=== PATIENT | female | born 1950 | race Caucasian/White ===

== ENCOUNTER → 2017-02-15 17:04 | Outpatient (CLI) | payer BC ==
[2015-08-03 07:20] VITALS: BMI 25.7
[~2017-02-15 17:04] MED LIST: ALENDRONATE SOD70 MG PO; CELEXA40 MG PO; DEXILANT60 MG PO; DITROPAN X10 MG/BOTT PO; HYDROCODONE-APA1 TAB PO; LIPOFEN150 MG PO; TOPAMAX50 MG PO; TOPROL XL50 MG PO
== END | disposition home or self-care (01) ==
LOC: D.MAMMO 02-07 14:30
DX: Z85.3 Personal history of malignant neoplasm of breast (principal)

== ENCOUNTER 2017-04-25 10:51 | Outpatient (CLI) | payer MEDICARE, BC ==
[~2017-04-25] VITALS: Ht 160 cm; Wt 68.2 kg
[2017-04-25] MEDS ORDERED: WELLBUTRIN XL150 M1 PO (11:45)
[2017-04-25] MEDS ORDERED: LIPITOR20 MG PO (11:45)
[2017-04-25] MEDS ORDERED: LIPITOR40 MG PO (11:46)
[2017-04-25 11:57] VITALS: BP 129/67; Ht 160 cm; Wt 68.2 kg
== END 2017-04-25 12:06 | disposition home or self-care (01) ==
LOC: D.OPS 10:51
DX: M81.0 Age-related osteoporosis without current pathological fracture (principal)

== ENCOUNTER 2017-11-21 09:26 | Outpatient (CLI) | payer MEDICARE, BC ==
[~2017-11-21] VITALS: Ht 160 cm; Wt 72.7 kg
[~2017-11-21 09:26] MED LIST changes: +LIPITOR20 MG PO; +LIPITOR40 MG PO; +WELLBUTRIN XL150 M1 PO
[2017-11-21 09:58] VITALS: Ht 160 cm; Wt 72.7 kg
== END 2017-11-21 10:09 ==
LOC: D.OPS 09:26
DX: M81.0 Age-related osteoporosis without current pathological fracture (principal)

== ENCOUNTER 2018-03-13 10:20 | Emergency (ER) | payer MEDICARE, BC ==
[2017-11-21 09:58] VITALS: BMI 28.4
[2018-03-13 11:32] LABS: HEMATOCRIT 37.5 % (36.0-48.0); HEMOGLOBIN 12.8 g/dL (12-16); MCH 32.7 pg (26.0-34.0); MCHC 34.1 g/dL (31.0-37.0); MCV 95.7 fL (80.0-100.0); MEAN PLATELET VOLUME 9.4 fL (7.4-10.4); RBC 3.92 10x6/uL (4.00-5.40); RDW 12.9 % (11.5-14.5); WBC 5.1 10x3/uL (4.8-10.8)
[2018-03-13 11:37] LABS: PLATELET COUNT 256 10x3/uL (130-400)
[2018-03-13 12:12] LABS: ALBUMIN 3.7 g/dL (3.4-5.0); BILIRUBIN - TOTAL 0.19 mg/dL (0.2-1.3); CALCIUM 8.7 mg/dL (8.5-10.1); CARBON DIOXIDE 24.6 mmol/L (21.0-32.0); CREATININE - SERUM 1.1 mg/dL (0.6-1.3); POTASSIUM - SERUM 3.6 mmol/L (3.5-5.1); PROTEIN - SERUM 7.2 g/dL (6.4-8.2)
[2018-03-13 12:52] LABS: EOSINOPHILS 1 % (0-7); LYMPHOCYTES 63 % (15-50); MONOCYTES 3 % (2-11); NEUTROPHILS 33 % (40-80); PLATELET ESTIMATE NORMAL
[2018-03-13 14:09] LABS: UDS - AMPHET NEGATIVE QUAL (NEGATIVE); UDS - BARB NEGATIVE QUAL (NEGATIVE); UDS - BENZO POSITIVE QUAL (NEGATIVE); UDS - COCAINE NEGATIVE QUAL (NEGATIVE); UDS - OPIATE NEGATIVE QUAL (NEGATIVE); UDS - PCP NEGATIVE QUAL (NEGATIVE); UDS - THC NEGATIVE QUAL (NEGATIVE)
[2018-03-13 14:29] LABS: APPEARANCE CLEAR (CLEAR); COLOR YELLOW (YELLOW); GLUCOSE NEGATIVE (NEGATIVE); NITRITE NEGATIVE (NEGATIVE); PROTEIN NEGATIVE (NEGATIVE); SPECIFIC GRAVITY 1.015 (1.005-1.020)
[2018-03-13 14:30] LABS: BACTERIA FEW /hpf (NONE SEEN); BILIRUBIN NEGATIVE (NEGATIVE); EPITHELIAL CELLS 0-5 /hpf (0-5); KETONE NEGATIVE (NEGATIVE); MUCUS <1+ /lpf (NONE SEEN); RED CELLS - URINE 0-5 /hpf (0-5); UROBILINOGEN NORMAL (NORMAL); WHITE CELLS - URINE RARE /hpf (0-5)
== END 2018-03-14 02:00 | disposition short-term general hospital (02) ==
LOC: D.ER 10:20
PROVIDERS: Family Medicine
DX: F10.10 Alcohol abuse, uncomplicated (principal); F10.129 Alcohol abuse with intoxication, unspecified; R45.851 Suicidal ideations; F17.200 Nicotine dependence, unspecified, uncomplicated

== ENCOUNTER 2018-11-13 11:56 | Outpatient (CLI) | payer MEDICARE, BC ==
[~2018-11-13] VITALS: Ht 160 cm; Wt 68.2 kg
[2018-11-13 12:18] VITALS: BP 125/50; Ht 160 cm; Wt 68.2 kg
== END 2018-11-13 12:25 | disposition home or self-care (01) ==
LOC: D.OPS 11:56
DX: M81.0 Age-related osteoporosis without current pathological fracture (principal); Z01.812 Encounter for preprocedural laboratory examination

== ENCOUNTER 2019-05-28 11:51 | Outpatient (CLI) | payer MEDICARE, BC ==
[~2019-05-28] VITALS: Ht 160 cm; Wt 59.1 kg
[2019-05-28 12:17] VITALS: BP 134/67; Ht 160 cm; Wt 59.1 kg
--- NOTE | 2019-05-28 12:43 | NUR ---
DR. MONTERO NOTIFIED AND REVIEWED PT'S BEHAVIOR AND ASSESSMENT RESULTS. PT IS A LOW RISK PER DR. MONTERO. DR. MONTERO STATED TO GIVE RESOURCES TO PT AT TIME OF DISCHARGE. NO FURTHER ORDERS AT THIS TIME. RESOURCES REVIEWED WITH PT AND SHE VERBALIZED UNDERSTANDING.
== END 2019-05-28 12:51 | disposition home or self-care (01) ==
LOC: D.MAMMO 11:51
PROVIDERS: ATTEND Emergency Medicine
DX: Z12.31 Encounter for screening mammogram for malignant neoplasm of breast (principal)

== ENCOUNTER → 2019-07-21 17:55 | Outpatient (CLI) | payer MEDICARE, BC ==
[2019-05-28 12:17] VITALS: BMI 23.0
== END | disposition home or self-care (01) ==
LOC: D.LABREF 17:55
PROVIDERS: ATTEND Urology
DX: N39.0 Urinary tract infection, site not specified (principal)

== ENCOUNTER → 2019-09-01 18:29 | Outpatient (CLI) | payer MEDICARE, BC ==
[2019-05-28 12:17] VITALS: BMI 23.0
== END | disposition home or self-care (01) ==
LOC: D.LABREF 18:29
PROVIDERS: ATTEND Urology
DX: N39.0 Urinary tract infection, site not specified (principal)

== ENCOUNTER → 2019-09-03 10:06 | Outpatient (CLI) | payer MEDICARE, BC ==
[2019-05-28 12:17] VITALS: BMI 23.0
[2019-09-03 10:42] LABS: ANION GAP 11.3 mmol/L (8-16); BILIRUBIN - TOTAL 0.42 mg/dL (0.2-1.3); CALCIUM 8.9 mg/dL (8.5-10.1); CARBON DIOXIDE 28.6 mmol/L (21.0-32.0); CREATININE - SERUM 1.3 mg/dL (0.6-1.3); POTASSIUM - SERUM 3.9 mmol/L (3.5-5.1); PROTEIN - SERUM 7.2 g/dL (6.4-8.2)
[2019-09-03 10:43] LABS: APTT 28.8 SECONDS (22.8-39.4); INR 1.01 (0.85-1.17); PROTIME 12.8 SECONDS (11.6-15.0)
[2019-09-03 10:53] LABS: BASOPHILS 0.3 % (0-2); EOSINOPHILS 1.4 % (0-7); HEMATOCRIT 37.2 % (36.0-48.0); HEMOGLOBIN 12.2 g/dL (12-16); IMMATURE GRANULOCYTES 0.3 % (0-5); LYMPHOCYTES 22.2 % (15-50); MCH 32.3 pg (26.0-34.0); MCHC 32.8 g/dL (31.0-37.0); MCV 98.4 fL (80.0-100.0); MEAN PLATELET VOLUME 9.3 fL (7.4-10.4); MONOCYTES 5.2 % (2-11); NEUTROPHILS 70.6 % (40-80); RBC 3.78 10x6/uL (4.00-5.40); RDW 12.9 % (11.5-14.5); WBC 9.8 10x3/uL (4.8-10.8)
[2019-09-03 10:57] LABS: PLATELET COUNT 380 10x3/uL (130-400)
== END | disposition home or self-care (01) ==
LOC: D.LAB 10:06
PROVIDERS: ATTEND Internal Medicine Gastroenterology
DX: R63.4 Abnormal weight loss (principal); R19.4 Change in bowel habit; R10.9 Unspecified abdominal pain

== ENCOUNTER 2019-09-16 06:39 | Day surgery (SDC) | payer MEDICARE, BC ==
[~2019-09-16] VITALS: Ht 160 cm; Wt 58.5 kg
[2019-09-16 07:00] LABS: BASOPHILS 0.7 % (0-2); EOSINOPHILS 2.5 % (0-7); HEMATOCRIT 35.5 % (36.0-48.0); HEMOGLOBIN 11.6 g/dL (12-16); IMMATURE GRANULOCYTES 0.4 % (0-5); LYMPHOCYTES 29.5 % (15-50); MCH 32.2 pg (26.0-34.0); MCHC 32.7 g/dL (31.0-37.0); MCV 98.6 fL (80.0-100.0); MEAN PLATELET VOLUME 8.5 fL (7.4-10.4); MONOCYTES 7.1 % (2-11); NEUTROPHILS 59.8 % (40-80); PLATELET COUNT 399 10x3/uL (130-400); RDW 12.6 % (11.5-14.5); WBC 5.7 10x3/uL (4.8-10.8)
[2019-09-16 07:15] LABS: APTT 30.3 SECONDS (22.8-39.4); INR 0.98 (0.85-1.17); PROTIME 12.5 SECONDS (11.6-15.0)
[2019-09-16 07:16] LABS: ALBUMIN 3.7 g/dL (3.4-5.0); BILIRUBIN - TOTAL 0.24 mg/dL (0.2-1.3); CALCIUM 8.6 mg/dL (8.5-10.1); CARBON DIOXIDE 25.9 mmol/L (21.0-32.0); CREATININE - SERUM 1.4 mg/dL (0.6-1.3); POTASSIUM - SERUM 3.9 mmol/L (3.5-5.1); PROTEIN - SERUM 7.6 g/dL (6.4-8.2)
[2019-09-16] MEDS ORDERED: LIPOFEN150 MG PO (07:59)
[2019-09-16 08:15] VITALS: BP 120/61; Ht 160 cm; Wt 58.5 kg
--- NOTE | 2019-09-16 08:25 | NUR ---
0800 HARNESS FITTER, MONSE, CALLED TO REQUEST BEHAVIORAL HEALTH CONSULT.
--- NOTE | 2019-09-16 08:57 | NUR ---
0857 PT HAS NOT HAD VISIT FROM [facility] N[facility]SE. SECOND CALL/REQUEST SUBMITTED TO JANINE RICHARDSON, HOME APPLIANCE WASHING MACHINE MECHANIC.
--- NOTE | 2019-09-16 09:30 | NUR ---
DR. MONTERO NOTIFIED AND REVIEWED PATIENT BEHAVIOR AND ASSESSMENT RESULTS. PATIENT IS A LOW LOW RISK. DR. MONTERO STATED TO GIVERESOURCES TO PATIENT AT TIME OF DISCHARGE. NO FURTHER ORDERS AT TIME. RESOURCES REVIEWED WITH PATIENT AND SHE VERBALIZED UNDERSTANDING.
--- NOTE | 2019-09-16 11:28 | OP ---
PATIENT NAME: DAVE BAIRES MEDICAL RECORD: [id number] :54 LOCATION:D.OPS ADMISSION DATE: SURGEON: ABHINAV QUIROZ MD DATE OF OPERATION: 09/16/2019 SURGEON: Abhinav Quiroz MD ANESTHESIA: TIVA by Carlos Rainey CRNA DIAGNOSIS: Microscopic hematuria. PROCEDURE: Cystoscopy. FINDINGS: No bladder tumors, bladder inflammation is seen. Single ureteral orifices bilaterally. SPECIMENS: None. ESTIMATED BLOOD LOSS: None. CLINICAL HISTORY: This is a 69-year-old female, who was seen for microscopic hematuria. Her urine culture showed E. coli, which we treated with Levaquin. She is not feeling better. She had a CT scan on 06/27/2019 which showed normal kidneys with no stones and no renal masses. She has some stress incontinence, but it is not bothersome to her. Pelvic examination showed atrophic vaginitis. I did not see any stress incontinence on examination at the time. She has a history of breast cancer and therefore she is not given any vaginal estrogen cream for the atrophic vaginitis. She comes today for cystoscopy to complete the hematuria workup. She is not allergic to any medications. She was given Ancef air conditioning coil assembler to the OR. DESCRIPTION OF PROCEDURE: The patient was given IV sedation. She was placed in lithotomy position. A 17-Bangladeshi cystoscope was used for visualization. There is some bladder inflammation which is present, probably due to the recent Escherichia coli urinary tract infection. No bladder tumors were seen. The bladder was emptied through the cystoscope sheath and the scope was removed. Followup p.r.n. TRANSINT:[id number] Voice Confirmation ID: [id number] DOCUMENT ID: [id number] ABHINAV QUIROZ MD at 1128 CC: [id number] DICTATION DATE: 09/16/19 1111 KILN DRAWER: 09/16/19 [id number] [place] [address]
--- NOTE | 2019-09-16 12:59 | NUR ---
1120 IV DC'ED WITH CATH INTACT & 100ML LTC. PRESSURE TO SITE. NO BLEEDING. DRESSING. Jacob UMANZOR R.N. 1138 DRESSED, AWAKE, & ALERT. GIVEN DISCHARGE INSTRUCTIONS INCLUDING: MED [facility], [facility] D/C INSTRUCTIONS & POST CYSTOSCOPY D/C INSTRUCTIONS. PT VOICED UNDERSTANDING. TO PRIVATE CAR PER WHEELCHAIR BY THIS NURSE. HOME WITH MOTHER, DESTINY CARVAJAL. Jacob UMANZOR R.N.
== END 2019-09-16 11:38 | disposition home or self-care (01) ==
LOC: D.OPS 06:39 → D.PAN 10:30 → D.OPS 11:38
PROVIDERS: Anesthesiology; ATTEND Urology
DX: R31.29 Other microscopic hematuria (principal)

== ENCOUNTER → 2019-09-19 07:53 | Outpatient (CLI) | payer MEDICARE, BC ==
[2019-09-16 08:15] VITALS: BMI 22.9
[2019-09-19 08:26] LABS: AMYLASE - SERUM 96 U/L (25-115); LIPASE 372 U/L (73-393)
== END | disposition home or self-care (01) ==
LOC: D.LAB 07:53 → D.CT 09:00
PROVIDERS: ATTEND Internal Medicine Gastroenterology
DX: R63.4 Abnormal weight loss (principal); R93.3 Abnormal findings on diagnostic imaging of other parts of digestive tract

== ENCOUNTER 2019-10-16 06:25 | Inpatient (IN) | payer MEDICARE, BC ==
[~2019-10-16] VITALS: Ht 160 cm; Wt 59.0 kg
--- NOTE | 2019-10-16 06:43 | NUR ---
PT AMBULATED TO RESTROOM INDEPENDENTLY.
[2019-10-16 07:35] LABS: APPEARANCE CLEAR (CLEAR); BILIRUBIN NEGATIVE (NEGATIVE); COLOR YELLOW (YELLOW); GLUCOSE NEGATIVE (NEGATIVE); KETONE NEGATIVE (NEGATIVE); NITRITE NEGATIVE (NEGATIVE); PROTEIN NEGATIVE (NEGATIVE); SPECIFIC GRAVITY 1.025 (1.005-1.020); UROBILINOGEN NORMAL (NORMAL)
[2019-10-16 07:36] LABS: EPITHELIAL CELLS OCC /hpf (0-5); RED CELLS - URINE 0-5 /hpf (0-5); WHITE CELLS - URINE RARE /hpf (NEGATIVE)
[2019-10-16 07:37] LABS: BACTERIA FEW /hpf (NEGATIVE); CALCIUM OXALATE CRYSTALS 0-5 /hpf (NONE SEEN); MUCUS <1+ /lpf (NONE SEEN); URIC ACID CRYSTALS OCC /hpf (NONE SEEN)
[2019-10-16 07:56] LABS: INR 1.12 (0.85-1.17); PROTIME 13.9 SECONDS (11.6-15.0)
[2019-10-16 08:01] LABS: CALC OSMOLALITY 290 mosm/kg (275-300); CALCIUM 8.5 mg/dL (8.5-10.1); CARBON DIOXIDE 26.2 mmol/L (21.0-32.0); CHLORIDE - SERUM 109 mmol/L (98-107); CREATININE - SERUM 0.9 mg/dL (0.6-1.3); GLUCOSE 75 mg/dL (74-106); POTASSIUM - SERUM 3.6 mmol/L (3.5-5.1); SODIUM 145 mmol/L (136-145); UREA NITROGEN 22 mg/dL (7-18); eGFR NON AFRICAN AMERICAN 66 mL/min (90-120)
[2019-10-16 08:11] LABS: ALBUMIN 3.7 g/dL (3.4-5.0); ALKALINE PHOSPHATASE 39 U/L (46-116); ALT (SGPT) 27 U/L (10-68); BASOPHILS 0.2 % (0-2); BILIRUBIN - TOTAL 0.37 mg/dL (0.2-1.3); EOSINOPHILS 0.4 % (0-7); HEMATOCRIT 36.8 % (36.0-48.0); HEMOGLOBIN 12.2 g/dL (12-16); IMMATURE GRANULOCYTES 0.1 % (0-5); LYMPHOCYTES 24.8 % (15-50); MAGNESIUM - SERUM 1.8 mg/dL (1.8-2.4); MCH 31.5 pg (26.0-34.0); MCHC 33.2 g/dL (31.0-37.0); MCV 95.1 fL (80.0-100.0); MEAN PLATELET VOLUME 8.9 fL (7.4-10.4); MONOCYTES 3.6 % (2-11); NEUTROPHILS 70.9 % (40-80); PRO BNP 175 pg/mL (0-125); RBC 3.87 10x6/uL (4.00-5.40); RDW 12.8 % (11.5-14.5); WBC 9.4 10x3/uL (4.8-10.8)
[2019-10-16 08:12] LABS: TROPONIN-I < 0.017 ng/mL (0.000-0.060)
[2019-10-16 08:13] LABS: PLATELET COUNT 252 10x3/uL (130-400)
[2019-10-16 08:16] LABS: AMYLASE - SERUM 326 U/L (25-115)
[2019-10-16 08:32] LABS: LIPASE 6696 U/L (73-393)
[2019-10-16 10:20] VITALS: BP 136/64
--- NOTE | 2019-10-16 14:25 | MORECARE ---
CASE MANAGEMENT DISCHARGE SUMMARY PATIENT: DAVE BAIRES UNIT: [id number] ADM DATE: 10/16/19 AGE: 69 : 52 SEX: F ROOM/BED: D.5152 AUTHOR: SILVANODOC PHYSICIAN: REFERRING PHYSICIAN: DOT MATHEW MD DATE OF SERVICE: 10/16/19 Discharge Plan Patient Name: DAVE BAIRES Facility: [facility]:[place] : 1950 Planned Disposition: Home Anticipated Discharge Date: 10/20/19 Discharge Date: Expected LOS: 4 Initial Reviewer: [email or web address] Initial Review Date: 10/16/2019 Generated: 10/16/19 3:25 pm DCP- Discharge Planning Updated by [email or web address]: Saima Rievra on 10/16/19 1:[address] DC PLAN: Return home independently. ANTICIPATED DC NEEDS: Denied known dc needs. CM met with patient to complete initial dc planning assessment. CM educated patient on the CM role and verbal consent given by patient to complete assessment. CM verified patient's address, phone number, and emergency contact phone numbers. Patient lives at home with her whom she cares for. At discharge patient plans to return home and feels this is a safe discharge. CM discussed availability of home health, rehab services, and medical equipment. Patient denied known discharge needs at this time. Transportation provider at discharge will be her uncle Perfecto . CM will continue to follow and will assist as needed with dc plans/needs. Saima Rivera RN, [facility] DCPIA - Discharge Planning Initial Assessment Updated by [email or web address]: Saima Rivera on 10/16/19 2:22 pm * Is the patient Alert and Oriented? Yes * How many steps to enter\exit or inside your home? None * PCP Dr. Simpson * Pharmacy [facility] * Preadmission Environment Home with Family * ADLs Independent * Equipment None * List name and contact numbers for known caregivers / representatives who currently or will assist patient after discharge: Masoud Baires - spouse - [phone] * Verbal permission to speak to the caregivers and representatives has been obtained from the patient. Yes * Community resources currently utilized None * Additional services required to return to the preadmission environment? No * Can the patient safely return to the preadmission environment? Yes * Has this patient been hospitalized within the prior 30 days at any hospital? No Patient Name: DAVE BAIRES Page [phone] at 1425 All edits/amendments must be made on the electronic document DICTATION DATE: 10/16/191424 [employer] HEAD COOK: MIKY 10/16/191424 RPT#: [id number] DC DATE: STATUS: ADM IN [facility] [address] [place] [address] END OF REPORT
[2019-10-16 15:40] VITALS: BP 145/67; BMI 23.0
[2019-10-16 16:45] VITALS: BP 129/63
--- NOTE | 2019-10-16 18:24 | NUR ---
ALERT AND ORIENTED, RESTING IN BED. NO C/O PAIN. NO S/S OF ACUTE DISTRESS NOTED. DENIES ANY NEEDS AT THIS TIME. CALL LIGHT IN REACH. WILL CONTINUE TO MONITOR.
--- NOTE | 2019-10-16 19:23 | NUR ---
LYING IN BED WITH EYES CLOSED, AROUSES EASILY TO VOICE. ABLE TO VOICE NEEDS. DENIES PAIN. IV INFUSING VIA PUMP TO LEFT AC. SHOWS NO S/SX OF ANY ACUTE DISTRESS. WILL NOTE ANY CHANGE.
[2019-10-16 20:00] VITALS: BP 150/72
[2019-10-17] VITALS (7 sets, daily range): BP systolic 130–151; BP diastolic 63–79; Ht 160 cm; Wt 59.0 kg
--- NOTE | 2019-10-17 00:40 | NUR ---
SWELLING NOTED TO BILATERAL UPPER EXTREMITIES. FLUIDS STOPPED, ARMS ELEVATED. WEDDING RING WAS NOT ABLE TO BE REMOVED WITH EASE, PETROLEUM JELLY APPLIED AND RING WAS REMOVED WITH EASE AND PLACED IN ENVELOPE WITH NAME ON.
--- NOTE | 2019-10-17 00:56 | NUR ---
Josette NARANJO NOTIFIED OF SWELLING WITH INSTRUCTIONS TO HOLD FLUIDS AND DRAW LABS IN MORNING. WILL NOTE ANY CHANGE.
[2019-10-17 04:50] LABS: BASOPHILS 0.3 % (0-2); EOSINOPHILS 1.7 % (0-7); HEMATOCRIT 32.1 % (36.0-48.0); HEMOGLOBIN 10.7 g/dL (12-16); IMMATURE GRANULOCYTES 0.2 % (0-5); LYMPHOCYTES 22.8 % (15-50); MCH 31.7 pg (26.0-34.0); MCHC 33.3 g/dL (31.0-37.0); MEAN PLATELET VOLUME 9.2 fL (7.4-10.4); MONOCYTES 8.2 % (2-11); NEUTROPHILS 66.8 % (40-80); PLATELET COUNT 218 10x3/uL (130-400); RBC 3.38 10x6/uL (4.00-5.40); RDW 13.2 % (11.5-14.5)
[2019-10-17 04:55] LABS: WBC 5.7 10x3/uL (4.8-10.8)
[2019-10-17 05:28] LABS: ALBUMIN 3.1 g/dL (3.4-5.0); ALKALINE PHOSPHATASE 30 U/L (46-116); ALT (SGPT) 22 U/L (10-68); BILIRUBIN - TOTAL 0.71 mg/dL (0.2-1.3); CALC OSMOLALITY 287 mosm/kg (275-300); CALCIUM 7.4 mg/dL (8.5-10.1); CARBON DIOXIDE 23.9 mmol/L (21.0-32.0); CHLORIDE - SERUM 111 mmol/L (98-107); CREATININE - SERUM 0.8 mg/dL (0.6-1.3); GLUCOSE 87 mg/dL (74-106); POTASSIUM - SERUM 3.3 mmol/L (3.5-5.1); PRO BNP 896 pg/mL (0-125); PROTEIN - SERUM 5.9 g/dL (6.4-8.2); SODIUM 144 mmol/L (136-145); UREA NITROGEN 19 mg/dL (7-18); eGFR NON AFRICAN AMERICAN 76 mL/min (90-120)
[2019-10-17 05:32] LABS: AMYLASE - SERUM 204 U/L (25-115); LIPASE 1339 U/L (73-393)
--- NOTE | 2019-10-17 09:59 | NUR ---
ASSESSMENT PER FLOW SHEET. PT IS WITHOUT DISTRESS.MONITOR FOR NEEDS.CALL LIGHT IN REACH.
--- NOTE | 2019-10-17 21:54 | NUR ---
A/O WITH NO SIGNS OF DISTRESS. IV TO THE LT AC WITH NO REDNESS OR SWELLING NOTED. ASSISTED TO BATHROOM AND PUT ON NEW GOWN. DENIES NO FURTHER NEEDS AT THIS TIME. CONTINUE PLAN OF CARE.
[2019-10-18 04:00] VITALS: BP 148/66
[2019-10-18 05:54] LABS: HEMATOCRIT 34.8 % (36.0-48.0); HEMOGLOBIN 11.4 g/dL (12-16); MCH 31.6 pg (26.0-34.0); MCHC 32.8 g/dL (31.0-37.0); MCV 96.4 fL (80.0-100.0); MEAN PLATELET VOLUME 9.4 fL (7.4-10.4); PLATELET COUNT 202 10x3/uL (130-400); RBC 3.61 10x6/uL (4.00-5.40); WBC 5.3 10x3/uL (4.8-10.8)
[2019-10-18 06:30] LABS: EOSINOPHILS 2 % (0-7); LYMPHOCYTES 31 % (15-50); MONOCYTES 1 % (2-11); NEUTROPHILS 66 % (40-80); PLATELET ESTIMATE NORMAL
[2019-10-18 06:31] LABS: ALBUMIN 3.4 g/dL (3.4-5.0); ALKALINE PHOSPHATASE 33 U/L (46-116); ALT (SGPT) 19 U/L (10-68); BILIRUBIN - TOTAL 0.64 mg/dL (0.2-1.3); CALC OSMOLALITY 276 mosm/kg (275-300); CALCIUM 8.2 mg/dL (8.5-10.1); CARBON DIOXIDE 20.1 mmol/L (21.0-32.0); CHLORIDE - SERUM 111 mmol/L (98-107); CREATININE - SERUM 0.8 mg/dL (0.6-1.3); GLUCOSE 87 mg/dL (74-106); POTASSIUM - SERUM 3.4 mmol/L (3.5-5.1); PROTEIN - SERUM 6.6 g/dL (6.4-8.2); SODIUM 140 mmol/L (136-145); eGFR NON AFRICAN AMERICAN 76 mL/min (90-120)
[2019-10-18 06:32] LABS: AMYLASE - SERUM 89 U/L (25-115); LIPASE 310 U/L (73-393); UREA NITROGEN 11 mg/dL (7-18)
[2019-10-18 07:49] VITALS: BP 156/77
[2019-10-18 12:00] VITALS: BP 152/66
[2019-10-18 16:11] VITALS: BP 136/69
[2019-10-18 20:00] VITALS: BP 130/66
--- NOTE | 2019-10-18 21:10 | NUR ---
LYING QUIETLY WITH NO DISTRESS NOTED. IV TO LAC INTACT WITHOUT REDNESS OR EDEMA NOTED. RESP UNALBORED. CL IN REACH
[2019-10-19 00:55] VITALS: BP 128/62
--- NOTE | 2019-10-19 02:32 | NUR ---
I have reviewed this patient and I concur with the Shift Assessment completed by the Licensed Practical Nurse today this shift.
[2019-10-19 04:00] VITALS: BP 157/70
[2019-10-19 04:33] LABS: BASOPHILS 0.2 % (0-2); EOSINOPHILS 2.9 % (0-7); HEMATOCRIT 33.6 % (36.0-48.0); HEMOGLOBIN 11.3 g/dL (12-16); IMMATURE GRANULOCYTES 0.2 % (0-5); LYMPHOCYTES 29.4 % (15-50); MCH 32.1 pg (26.0-34.0); MCHC 33.6 g/dL (31.0-37.0); MCV 95.5 fL (80.0-100.0); MEAN PLATELET VOLUME 9.1 fL (7.4-10.4); MONOCYTES 9.6 % (2-11); NEUTROPHILS 57.7 % (40-80); PLATELET COUNT 227 10x3/uL (130-400); RBC 3.52 10x6/uL (4.00-5.40); RDW 13.2 % (11.5-14.5); WBC 5.6 10x3/uL (4.8-10.8)
[2019-10-19 04:44] LABS: ALBUMIN 3.1 g/dL (3.4-5.0); ANION GAP 11.6 mmol/L (8-16); BILIRUBIN - TOTAL 0.5 mg/dL (0.2-1.3); CALCIUM 7.7 mg/dL (8.5-10.1); CARBON DIOXIDE 20.2 mmol/L (21.0-32.0); CREATININE - SERUM 0.9 mg/dL (0.6-1.3); POTASSIUM - SERUM 3.8 mmol/L (3.5-5.1); PROTEIN - SERUM 6.1 g/dL (6.4-8.2)
[2019-10-19 07:43] VITALS: BP 147/71
--- NOTE | 2019-10-19 09:29 | NUR ---
PT ALERT X 4. BREATH SOUNDS CLEAR BILAT. IV TO LEFT AC, PATENT, DRESSING CDI. PT REPORTING NO PAIN AT THIS TIME. TOLERATING DIET CHANGE. REQUESTING TO BE DISCONNECTED FROM IV TO DO ADL'S. BED LOW, CALL LIGHT IN REACH. NO OTHER NEEDS AT THIS TIME.
--- NOTE | 2019-10-19 11:44 | MORECARE ---
CASE MANAGEMENT DISCHARGE SUMMARY PATIENT: DAVE BAIRES UNIT: [id number] ADM DATE: 10/16/19 AGE: 69 : 52 SEX: F ROOM/BED: D.1988 AUTHOR: SILVANODOC PHYSICIAN: REFERRING PHYSICIAN: DOT MATHEW MD DATE OF SERVICE: 10/19/19 Discharge Plan Patient Name: DAVE BAIRES Facility: [facility]:[place] : 1950 Planned Disposition: Home Anticipated Discharge Date: 10/20/19 Discharge Date: Expected LOS: 4 Initial Reviewer: [email or web address] Initial Review Date: 10/16/2019 Generated: 10/19/19 12:44 pm Comments DCP- Discharge Planning Updated by [email or web address]: Candice De Leon on 10/19/19 10:[address] Patient Name: DAVE BAIRES Encounter No: [id number] : 1950 Primary Insurance: MEDICARE A & B Anticipated DC Date: 10-20-2019 Planned Disposition: Home External Planned Provider: : DCP follow-up note: Patient in agreement with discharge plan. No changes to plan. Case management will follow and assist as needed. IMM GIVEN. Candice De Leon DCP- Discharge Planning Updated by [email or web address]: Saima Rivera on 10/16/19 1:[address] DC PLAN: Return home independently. ANTICIPATED DC NEEDS: Denied known dc needs. CM met with patient to complete initial dc planning assessment. CM educated patient on the CM role and verbal consent given by patient to complete assessment. CM verified patient's address, phone number, and emergency contact phone numbers. Patient lives at home with her whom she cares for. At discharge patient plans to return home and feels this is a safe discharge. CM discussed availability of home health, rehab services, and medical equipment. Patient denied known discharge needs at this time. Transportation provider at discharge will be her uncle Perfecto . CM will continue to follow and will assist as needed with dc plans/needs. Saima Rivera RN, [facility] DCPIA - Discharge Planning Initial Assessment Updated by [email or web address]: Saima Rivera on 10/16/19 2:22 pm * Is the patient Alert and Oriented? Yes * How many steps to enter\exit or inside your home? None * PCP Dr. Simpson * Pharmacy [facility] * Preadmission Environment Home with Family * ADLs Independent * Equipment None * List name and contact numbers for known caregivers / representatives who currently or will assist patient after discharge: Masoud Baires - spouse - [phone] * Verbal permission to speak to the caregivers and representatives has been obtained from the patient. Yes * Community resources currently utilized None * Additional services required to return to the preadmission environment? No * Can the patient safely return to the preadmission environment? Yes * Has this patient been hospitalized within the prior 30 days at any hospital? No Coverage Notice Reviewer: [email or web address] Rivera De Leon Notice Issued Date-Time: 10/19/2019 11:41 Notice Type: IM Discharge Notice Notice Delivered To: Patient Relationship to Patient: Long Distance Billing Operator Name: Delivery Method: HAND - Hand Delivered Lauren Days: Prior Verbal Notification: Recipient Understood Notice: Yes Recipient Signature: Yes Med Rec Note Co-signed by Attending: Coverage Notice Comment: Last DP export: 10/16/19 1:25 Patient Name: DAVE BAIRES Page [id number] at 1144 All edits/amendments must be made on the electronic document DICTATION DATE: 10/19/191143 GEOGRAPHIC INFORMATION SYSTEMS MANAGER: MIKY 10/19/19 114 RPT#: [id number] DC DATE: STATUS: ADM IN [facility] [address] [place] [address] END OF REPORT
[2019-10-19 12:48] VITALS: BP 138/67
--- NOTE | 2019-10-19 15:23 | NUR ---
DISCHARGE PAPERWORK SIGNED, ALL QUESTIONS ANSWERED. IV TO LEFT AC DC'D, TIP INTACT. ESCORTED OUT BY WHEELCHAIR.
--- NOTE | 2019-10-21 16:55 | MORECARE ---
CASE MANAGEMENT DISCHARGE SUMMARY PATIENT: DAVE BAIRES UNIT: [id number] ADM DATE: 10/16/19 AGE: 69 : 52 SEX: F ROOM/BED: D.1661 AUTHOR: DARIEL SCHAEFER PHYSICIAN: REFERRING PHYSICIAN: DOT MATHEW MD DATE OF SERVICE: 10/21/19 Discharge Plan Patient Name: DAVE BAIRES Facility: [facility]:[place] : 1950 Planned Disposition: Home Anticipated Discharge Date: 10/20/19 Discharge Date: 10/19/2019 Expected LOS: 4 Initial Reviewer: [email or web address] Initial Review Date: 10/16/2019 Generated: 10/21/19 5:55 pm Comments DCP- Discharge Planning Updated by [email or web address]: Candice De Leon on 10/19/19 10:[address] Patient Name: DAVE BAIRES Encounter No: [id number] : 1950 Primary Insurance: MEDICARE A & B Anticipated DC Date: 10-20-2019 Planned Disposition: Home External Planned Provider: : DCP follow-up note: Patient in agreement with discharge plan. No changes to plan. Case management will follow and assist as needed. IMM GIVEN. Candice De Leon DCP- Discharge Planning Updated by [email or web address]: Saima Rivera on 10/16/19 1:[address] DC PLAN: Return home independently. ANTICIPATED DC NEEDS: Denied known dc needs. CM met with patient to complete initial dc planning assessment. CM educated patient on the CM role and verbal consent given by patient to complete assessment. CM verified patient's address, phone number, and emergency contact phone numbers. Patient lives at home with her whom she cares for. At discharge patient plans to return home and feels this is a safe discharge. CM discussed availability of home health, rehab services, and medical equipment. Patient denied known discharge needs at this time. Transportation provider at discharge will be her uncle Perfecto . CM will continue to follow and will assist as needed with dc plans/needs. Saima Rivera RN, [facility] DCPIA - Discharge Planning Initial Assessment Updated by [email or web address]: Saima Rivera on 10/16/19 2:22 pm * Is the patient Alert and Oriented? Yes * How many steps to enter\exit or inside your home? None * PCP Dr. Simpson * Pharmacy [facility] * Preadmission Environment Home with Family * ADLs Independent * Equipment None * List name and contact numbers for known caregivers / representatives who currently or will assist patient after discharge: Masoud Baires - spouse - [phone] * Verbal permission to speak to the caregivers and representatives has been obtained from the patient. Yes * Community resources currently utilized None * Additional services required to return to the preadmission environment? No * Can the patient safely return to the preadmission environment? Yes * Has this patient been hospitalized within the prior 30 days at any hospital? No Coverage Notice Reviewer: [email or web address] Rivera De Leon Notice Issued Date-Time: 10/19/2019 11:41 Notice Type: IM Discharge Notice Notice Delivered To: Patient Relationship to Patient: Silver Recovery Operator Name: Delivery Method: HAND - Hand Delivered Lauren Days: Prior Verbal Notification: Recipient Understood Notice: Yes Recipient Signature: Yes Med Rec Note Co-signed by Attending: Coverage Notice Comment: Last DP export: 10/19/19 10:44 Patient Name: DAVE BAIRES Page [id number] at 1655 All edits/amendments must be made on the electronic document DICTATION DATE: 10/21/191654 BARREL WATERER: MIKY 10/21/191654 RPT#: [id number] DC DATE:10/19/19 STATUS: DIS IN [facility] [address] [place] [address] END OF REPORT
== END 2019-10-19 15:24 | disposition home or self-care (01) | DRG 439 ==
LOC: D.ER 06:25 → D.MS 10:28
PROVIDERS: Family Medicine; ADMIT Emergency Medicine; ATTEND Emergency Medicine
DX: K85.20 Alcohol induced acute pancreatitis without necrosis or infection (principal); F17.203 Nicotine dependence unspecified, with withdrawal; I10 Essential (primary) hypertension; K21.9 Gastro-esophageal reflux disease without esophagitis; F10.10 Alcohol abuse, uncomplicated; F32.9 Major depressive disorder, single episode, unspecified; Z85.3 Personal history of malignant neoplasm of breast

== ENCOUNTER → 2020-05-31 07:32 | Outpatient (CLI) | payer MEDICARE, BC ==
[2019-10-17 11:06] VITALS: BMI 23.0
[2020-05-31 08:12] LABS: T4 THYROXINE 10.1 ug/dL (4.7-13.3); THYROID STIMULATING HORMONE 1.19 uIU/mL (0.36-3.74)
== END | disposition home or self-care (01) ==
LOC: D.NM 07:32
PROVIDERS: ATTEND Internal Medicine Gastroenterology
DX: R68.81 Early satiety (principal); R63.4 Abnormal weight loss

== ENCOUNTER → 2020-06-03 07:48 | Outpatient (CLI) | payer MEDICARE, BC ==
[2019-10-17 11:06] VITALS: BMI 23.0
== END | disposition home or self-care (01) ==
LOC: D.RAD 07:48
PROVIDERS: ATTEND Internal Medicine Gastroenterology
DX: R68.81 Early satiety (principal); R63.4 Abnormal weight loss

== ENCOUNTER 2020-08-25 11:20 | Emergency (ER) | payer MEDICARE, BC ==
[~2020-08-25] VITALS: Ht 160 cm; Wt 59.1 kg
[2020-08-25 11:24] VITALS: Ht 160 cm; Wt 59.1 kg
[2020-08-25] MEDS ORDERED: CYMBALTA20 MG (11:31)
[2020-08-25] MEDS ORDERED: OMEPRAZOLE20 M1 (11:31)
[2020-08-25] MEDS ORDERED: PEPCID40 MG (11:32)
[2020-08-25 11:52] LABS: INR 1.08 (0.85-1.17)
[2020-08-25 11:54] LABS: ANION GAP 15.2 mmol/L (8-16); CALCIUM 9.3 mg/dL (8.5-10.1); CARBON DIOXIDE 23.6 mmol/L (21.0-32.0); CREATININE - SERUM 1.1 mg/dL (0.6-1.3); POTASSIUM - SERUM 3.8 mmol/L (3.5-5.1)
[2020-08-25 11:56] LABS: BASOPHILS 0.2 % (0-2); EOSINOPHILS 0.3 % (0-7); HEMATOCRIT 36.4 % (36.0-48.0); HEMOGLOBIN 12.4 g/dL (12-16); LYMPHOCYTES 14.8 % (15-50); MCHC 34.1 g/dL (31.0-37.0); MCV 94.1 fL (80.0-100.0); MEAN PLATELET VOLUME 8.8 fL (7.4-10.4); MONOCYTES 6.2 % (2-11); NEUTROPHILS 78.5 % (40-80); PLATELET COUNT 205 10x3/uL (130-400); RBC 3.87 10x6/uL (4.00-5.40); RDW 12.7 % (11.5-14.5); WBC 5.9 10x3/uL (4.8-10.8)
[2020-08-25 12:09] LABS: ALBUMIN 3.9 g/dL (3.4-5.0); BILIRUBIN - TOTAL 0.69 mg/dL (0.2-1.3); CHOL - HDL RATIO 1.9 ratio (2.3-4.1); LDL-HDL RATIO 0.7 ratio (1.5-3.5); MAGNESIUM - SERUM 1.7 mg/dL (1.8-2.4); PROTEIN - SERUM 7.3 g/dL (6.4-8.2); THYROID STIMULATING HORMONE 0.65 uIU/mL (0.36-3.74)
[2020-08-25 12:56] LABS: BACTERIA FEW HPF (NONE SEEN); BILIRUBIN NEGATIVE (NEGATIVE); EPITHELIAL CELLS OCC /hpf (0-5); KETONE SMALL mg/dL (NEGATIVE); NITRITE NEGATIVE (NEGATIVE); UROBILINOGEN NORMAL mg/dL (< 2); WHITE CELLS - URINE RARE HPF (0-4)
[2020-08-25] MEDS ORDERED: METHOCARBAMOL500 MG PO (13:43)
[2020-08-25] MEDS ORDERED: HYDROCODON-ACE1 EAC7 PO (13:43)
[2020-08-25 14:23] VITALS: BP 183/69
== END 2020-08-25 14:26 | disposition home or self-care (01) ==
LOC: D.ER 11:20
PROVIDERS: Emergency Medicine
DX: M51.36 Other intervertebral disc degeneration, lumbar region (principal); I10 Essential (primary) hypertension; K21.9 Gastro-esophageal reflux disease without esophagitis; R10.9 Unspecified abdominal pain